=== PATIENT | female | born 1980 | race Caucasian/White ===

== ENCOUNTER 2018-01-21 18:00 | Inpatient (IN) | payer MEDICARE, MEDICAID ==
[~2018-01-21] VITALS: Ht 167.6 cm; Wt 61.7 kg
[2018-01-21 19:37] VITALS: BP 102/70
[2018-01-21] MEDS ORDERED: ZOLPIDEM TARTRATE 10 MG TABLET PO PRN (21:00)
[2018-01-21] MEDS ORDERED: HALOPERIDOL 5 MG TABLET PO PRN (21:00)
[2018-01-21] MEDS ORDERED: LORazepam 2 MG TABLET PO PRN (21:00)
[2018-01-22 01:52] VITALS: BP 105/76
[2018-01-22 02:10] LABS: APPEARANCE,URINE CLEAR (CLEAR); BILIRUBIN,URINE NEGATIVE (NEGATIVE); GLUCOSE, URINE (UA) NEGATIVE (NEGATIVE); KETONES,URINE NEGATIVE (NEGATIVE); LEUKOCYTE ESTERASE ,URINE NEGATIVE (NEGATIVE); NITRATE,URINE NEGATIVE (NEGATIVE); OCCULT BLOOD,URINE NEGATIVE (NEGATIVE); PH,URINE 5.5 (5.0-8.0); PROTEIN,URINE NEGATIVE (NEGATIVE); UROBILINOGEN,URINE 0.2 mg/dL (<=1.0)
[2018-01-22 02:18] LABS: AMPHET/METH SCREEN,URINE NEGATIVE (NEGATIVE); BARBITURATE SCREEN, URINE NEGATIVE (NEGATIVE); BENZODIAZEPINES SCREEN,URINE NEGATIVE (NEGATIVE); CANNABINOID SCREEN,URINE NEGATIVE (NEGATIVE); COCAINE SCREEN,URINE NEGATIVE (NEGATIVE); METHADONE SCREEN, URINE NEGATIVE (NEGATIVE); OPIATE SCREEN,URINE NEGATIVE (NEGATIVE); PHENCYCLIDINE SCREEN,URINE NEGATIVE (NEGATIVE)
[2018-01-22] MEDS: OLANZapine 5 MG TABLET PO SCH ×2 (10:15→20:31)
[2018-01-22] MEDS: DIVALPROEX SODIUM 500 MG DR TABLET PO SCH ×2 (10:15→20:31)
[2018-01-22 17:03] VITALS: BP 118/73
[2018-01-23] MEDS: DIVALPROEX SODIUM 500 MG DR TABLET PO SCH ×2 (09:00→20:54)
[2018-01-23] MEDS: OLANZapine 5 MG TABLET PO SCH ×2 (09:00→20:52)
[2018-01-23 20:27] VITALS: BP 124/82
[2018-01-24 08:30] VITALS: BP 119/67
[2018-01-24] MEDS: DIVALPROEX SODIUM 500 MG DR TABLET PO SCH ×2 (09:00→20:37)
[2018-01-24] MEDS: OLANZapine 5 MG TABLET PO SCH ×2 (09:02→20:38)
[2018-01-24 19:12] VITALS: BP 124/76
[2018-01-25 06:18] LABS: BASOPHILS % (AUTO) 1.1 % (0.0-2.0); EOSINOPHILS % (AUTO) 1.9 % (1.0-6.0); HEMATOCRIT 36.8 % (36-46); HEMOGLOBIN 12.5 g/dL (12.0-16.0); LYMPHOCYTES # (AUTO) 2.3 K/uL (1.0-4.8); LYMPHOCYTES % (AUTO) 39.1 % (22.0-44.0); MEAN CORPUSCULAR HEMOGLOBIN 28.8 pg (26.0-34.0); MEAN CORPUSCULAR VOLUME 85 fL (80-100); MONOCYTES # (AUTO) 0.4 K/uL (0.1-1.0); MONOCYTES % (AUTO) 7.2 % (2.0-9.0); NEUTROPHILS # (AUTO) 2.9 K/uL (1.8-7.7); NEUTROPHILS % (AUTO) 50.7 % (40.0-70.0); PLATELET COUNT (AUTO) 208 K/uL (150-450); RED BLOOD CELL COUNT(AUTO) 4.35 MIL/uL (4.00-5.20); RED CELL DISTRIBUTION WIDTH 13.8 % (11.5-14.5)
[2018-01-25 06:47] LABS: ALANINE AMINOTRANSFERASE 12 U/L (12-78); ALBUMIN 3.6 g/dL (3.4-5.0); ALKALINE PHOSPHATASE 34 U/L (46-116); ANION GAP 8 mmol/L (8-16); ASPARTATE AMINOTRANSFERASE 14 U/L (15-37); BILIRUBIN,TOTAL 0.7 mg/dL (0.1-1.0); CALCIUM, TOTAL 8.4 mg/dL (8.8-10.5); CARBON DIOXIDE 29 mmol/L (22-29); CHLORIDE 105 mmol/L (98-107); CHOL/HDL RATIO 2.5 (3.9-5.7); CHOLESTEROL 127 mg/dL (131-200); CREATINE KINASE, TOTAL 51 U/L (26-192); CREATININE 0.79 mg/dL (0.60-1.30); FREE T4 (FREE THYROXINE) 1.15 ng/dL (0.76-1.46); GLOMERULAR FILTR. RATE CALC > 60 mL/min (>60); GLUCOSE,RANDOM 88 mg/dL (70-110); HDL CHOLESTEROL 51 mg/dL (40-60); LDL CHOL (CALC.) 71 mg/dL (0-130); POTASSIUM 3.8 mmol/L (3.5-5.1); SODIUM SERUM 142 mmol/L (136-145); THYROID STIMULATING HORMONE 7.27 uIU/mL (0.36-3.74); TRIGLYCERIDES 27 mg/dL (15-150); UREA NITROGEN, BLOOD 13 mg/dL (7-18)
[2018-01-25 07:13] LABS: HEMOGLOBIN A1C 5.8 % (4.5-6.2)
[2018-01-25 08:20] VITALS: BP 99/66
[2018-01-25] MEDS: OLANZapine 5 MG TABLET PO SCH ×2 (08:27→20:55)
[2018-01-25] MEDS: DIVALPROEX SODIUM 500 MG DR TABLET PO SCH ×2 (11:15→20:55)
[2018-01-26] MEDS: OLANZapine 5 MG TABLET PO SCH ×2 (08:21→20:46)
[2018-01-26] MEDS: DIVALPROEX SODIUM 500 MG DR TABLET PO SCH ×2 (08:21→20:56)
[2018-01-27] MEDS: DIVALPROEX SODIUM 500 MG DR TABLET PO SCH (08:18)
[2018-01-27] MEDS: OLANZapine 5 MG TABLET PO SCH (08:20)
[2018-01-27] MEDS ORDERED: DIVA250T4 PO (11:08)
[2018-01-27] MEDS ORDERED: OLAN5TAB2 PO (11:10)
[2018-01-27 16:57] VITALS: BP 112/75
[2018-01-28] MEDS ORDERED: LEVOTHYROXINE SODIUM 25 MCG TABLET PO SCH (07:00)
== END 2018-01-27 19:00 | disposition home or self-care (01) | DRG 885 ==
LOC: 3EX 18:00
DX: F31.2 Bipolar disorder, current episode manic severe with psychotic features (principal); R45.851 Suicidal ideations; D64.9 Anemia, unspecified; E03.9 Hypothyroidism, unspecified; E55.9 Vitamin D deficiency, unspecified; Z82.5 Family history of asthma and other chronic lower respiratory diseases; Z91.19 Patient's noncompliance with other medical treatment and regimen; Z88.0 Allergy status to penicillin
CPT/HCPCS: 80074; 80307; 82306; 82607; 82746; 83036; 83735; 84439; 84443; 87081